=== PATIENT | male | born 1950 | race Hispanic/Latino ===

== ENCOUNTER 2017-04-21 00:45 | Observation (INO) | payer MEDICARE, BC ==
[2017-04-21 00:46] VITALS: BMI 47.5
--- NOTE | 2017-04-21 01:05 | ED PDOC ---
Arrival/HPI - General Chief Complaint: Chest Pain Time Seen by Provider: 04/21/17 00:49 Historian: Patient - History of Present Illness Narrative History of Present Illness (Text): 04/21/17 01:05 Roberto Blanc is a 66 year old male who presents to the emergency department complaining of vague mid-sternal chest pain since yesterday evening. Patient states it is difficult to describe the quality of pain. This that chest pain could be due to possible allergic reaction to something he ate. Along with the chest pain, patient states he developed some itchiness to the arms which resolved after using Benadryl spray. Patient also notes of some shortness of breath during onset of symptoms, but informs that symptoms are gone now.Also states that earlier today when eating cottage cheese felt transit time in his esophagus was delayed. Denies any fever, chills, headache, dizziness, back pain , nausea, vomiting, diarrhea, lower extremity pain, urinary symptoms or any other complaints at this time. Time/Duration: 4-6 hours Symptom Onset: Gradual Symptom Course: Improving Severity Level: Mild Activities at Onset: Light Past Medical History - Provider Review Nursing Documentation Reviewed: Yes - Cardiac Hx Hypertension: Yes Hx Pacemaker: No - Neurological Hx Paralysis: No - Hematological/Oncological Hx Blood Transfusions: No - Musculoskeletal/Rheumatological Hx Musculoskeletal Disorders: No - Psychiatric Hx Emotional Abuse: No Hx Physical Abuse: No Hx Substance Use: No - Anesthesia Hx Anesthesia Reactions: No Hx Malignant Hyperthermia: No - Suicidal Assessment Feels Threatened In Home Enviroment: No Family/Social History - Physician Review Nursing Documentation Reviewed: Yes Family/Social History: No Known Family HX Smoking Status: Never Smoked Hx Alcohol Use: No Hx Substance Use: No Allergies/Home Meds Allergies/Adverse Reactions: Allergies No Known Allergies Allergy (Verified 11/08/15 07:44) Home Medications: Home Meds Medication Instructions Recorded Confirmed Atorvastatin [Lipitor] 20 mg PO DAILY 04/21/17 04/21/17 Losartan/Hydrochlorothiazide 1 tab PO DAILY 04/21/17 04/21/17 [Losartan Potassium-Hydrochlorothiazide 12.5 M] Metoprolol Tartrate [Lopressor] 100 mg PO DAILY 04/21/17 04/21/17 [id number] Ethyl Esters 1 GM 1 gm PO QID 04/21/17 04/21/17 [Lovaza] Review of Systems - Physician Review All systems were reviewed & negative as marked: Yes - Review of Systems Constitutional: Normal. absent: Fatigue, Fevers Respiratory: SOB. absent: Cough, Sputum Cardiovascular: Chest Pain. absent: Palpitations Gastrointestinal: Normal. absent: Abdominal Pain, Diarrhea, Nausea, Vomiting Genitourinary Male: Normal. absent: Dysuria Skin: Other (itchiness to arms ) Neurological: Normal. absent: Headache, Dizziness Psychiatric: Normal Physical Exam Vital Signs Reviewed: Yes Vital Signs Temp Pulse Resp BP Pulse Ox 04/21/17 03:52 97.8 F 51 L 18 131/82 04/21/17 03:42 62 16 125/72 98 04/21/17 00:53 98.3 F 59 L 16 132/67 97 Temperature: Afebrile Blood Pressure: Normal Pulse: Regular Respiratory Rate: Normal Appearance: Positive for: Well-Appearing, Non-Toxic, Comfortable Pain Distress: None Mental Status: Positive for: Alert and Oriented X 3 - Systems Exam Head: Present: Atraumatic, Normocephalic Pupils: Present: PERRL Conjunctiva: Present: Normal Mouth: Present: Moist Mucous Membranes Respiratory/Chest: Present: Clear to Auscultation, Good Air Exchange. No: Respiratory Distress, Accessory Muscle Use Cardiovascular: Present: Regular Rate and Rhythm, Normal S1, S2. No: Murmurs Abdomen: Present: Normal Bowel Sounds. No: Tenderness, Distention, Peritoneal Signs Upper Extremity: Present: Normal Inspection. No: Cyanosis, Edema Lower Extremity: Present: Normal Inspection. No: Edema Neurological: Present: GCS=15, CN II-XII Intact, Speech Normal, Motor Func Grossly Intact, Normal Sensory Function Skin: Present: Warm, Dry, Normal Color. No: Rashes Psychiatric: Present: Alert, Oriented x 3, Normal Insight, Normal Concentration Medical Decision Making ED Course and Treatment: 04/21/17 01:15 Impression: A 66 year old male who presents to the emergency department complaining of vague chest discomfort and mild shortness of breath since yesterday evening. Plan: -- EKG -- Labs, cardiac notes -- Chest X-ray -- Reassess and disposition Progress Notes: 04/21/17 02:48 EKG interpreted by me: Sinus bradycardia @ 59 bpm. LVH. septal infarct. Case discussed with Dr. Nickerson who is aware and agrees with the plan to observe patient at remote telemetry for chest pain. Accepts patient under service with and on consult - Lab Interpretations Lab Results: 04/21/17 01:09 04/21/17 01:09 Lab Results 04/21/17 01:09: WBC 5.0 D, RBC 4.95, Hgb 14.9, Hct 42.9, MCV 86.7, MCH 30.1, MCHC 34.7, RDW 14.9 H, Plt Count 61 L, MPV 10.0 04/21/17 01:09: Sodium 137, Potassium 3.8, Chloride 103, Carbon Dioxide 25, Anion Gap 13, BUN 17, Creatinine 1.4, Est GFR ( Amer) > 60, Est GFR (Non- Af Amer) 51, Random Glucose 117 H, Calcium 10.2, Total Bilirubin 2.8 H, AST 53, ALT 47, Alkaline Phosphatase 205 H, Lactate Dehydrogenase 383, Total Creatine Kinase 77, Troponin I < 0.01, Total Protein 7.9, Albumin 4.1, Globulin 3.9, Albumin/Globulin Ratio 1.1 04/21/17 01:09: PT 11.5, INR 1.06, APTT 30.8 - RAD Interpretation Radiology Orders: 04/21/17 01:02 CHEST PORTABLE [RAD] Stat - Medication Orders Current Medication Orders: Sodium Chloride (Sodium Chloride 0.9%) 1,000 mls @ 100 mls/hr IV .Q10H STA Stop: 04/21/17 12:27 Last Admin: 04/21/17 03:01 Dose: 100 mls/hr - Scribe Statement The provider has reviewed the documentation as recorded by the Unique Medeiros Provider Attestation: Provider Scribe Attestation: All medical record entries made by the Alfredoibkatya were at my direction and personally dictated by me. I have reviewed the chart and agree that the record accurately reflects my personal performance of the history, physical exam, medical decision making, and the department course for this patient. I have also personally directed, reviewed, and agree with the discharge instructions and disposition. Disposition/Present on Arrival - Present on Arrival Any Indicators Present on Arrival: No History of DVT/PE: No History of Uncontrolled Diabetes: No Urinary Catheter: No History of Decub. Ulcer: No History Surgical Site Infection Following: None - Disposition Have Diagnosis and Disposition been Completed?: Yes Diagnosis: Chest pain Disposition: HOSPITALIZED Disposition Time: 02:25 Patient Plan: Observation Patient Problems: Current Active Problems Problem Status Onset Chest pain Acute Condition: STABLE Referrals: Stu Nickerson MD [Staff Provider] -
[2017-04-21 01:37] LABS: HEMATOCRIT 42.9 % (42.0-52.0); MEAN CELL VOLUME 86.7 fL (80.0-105.0); MEAN CORPUSCULAR HEMOGLOBIN 30.1 pg (25.0-35.0); MEAN CORPUSCULAR HGB CONC 34.7 g/dl (31.0-37.0); RED CELL DISTRIBUTION WIDTH 14.9 % (11.5-14.5)
[2017-04-21 01:43] LABS: INR 1.06 (0.93-1.08); PARTIAL THROMBOPLASTIN TIME 30.8 Seconds (23.7-30.8)
[2017-04-21 02:20] LABS: ALB/GLOB RATIO 1.1 (1.1-1.8); ALKALINE PHOSPHATASE 205 U/L (38-133); ALT/SGPT 47 U/L (7-56); AST/SGOT 53 U/L (15-59); BILIRUBIN,TOTAL 2.8 mg/dL (0.2-1.3); BLOOD UREA NITROGEN 17 mg/dL (7-21); CALCIUM 10.2 mg/dL (8.4-10.5); CARBON DIOXIDE 25 mmol/L (21-33); CHLORIDE 103 mmol/L (98-107); GFR AFRICAN-AMERICAN > 60; GLUCOSE,RANDOM 117 mg/dL (70-110); POTASSIUM 3.8 mmol/L (3.6-5.0); SODIUM 137 mmol/L (132-148); TOTAL PROTEIN 7.9 g/dL (5.8-8.3)
[2017-04-21] MEDS ORDERED: Sodium Chloride 0.9% 1,000 ML IV STA (02:28)
[2017-04-21 02:54] LABS: TROPONIN I < 0.01 ng/mL
--- NOTE | 2017-04-21 08:41 | RAD ---
HISTORY: chest pain COMPARISON: 09/14/2015 FINDINGS: LUNGS: No active pulmonary disease. PLEURA: No significant pleural effusion identified, no pneumothorax apparent. CARDIOVASCULAR: Normal. OSSEOUS STRUCTURES: No significant abnormalities. VISUALIZED UPPER ABDOMEN: Normal. OTHER FINDINGS: None. IMPRESSION: No active disease.
[2017-04-21] MEDS: Metoprolol Succinate 100 mg XL Tab PO SCH (10:00)
--- NOTE | 2017-04-21 14:20 | CON ---
DATE: 04/21/2017 INDICATIONS: Shortness of breath, abnormal EKG. HISTORY OF PRESENT ILLNESS: This is a 66-year-old man admitted after a couple days of unusual symptoms including shortness of breath, upper airway discomfort , difficulty swallowing and hives. These symptoms started on Thursday when he had a 2-3 hour episode of vague shortness of breath and upper airway discomfort. There was no definite chest pain. He noted fleeting hives on his arms and chest. On Thursday, he again noted difficulty with his upper airway. There was some shortness of breath, he had difficulty swallowing and drank water to wash down some cottage cheese. The symptoms persisted on Thursday and he came to the Emergency Room and was admitted. There is no definite exertional chest pain. He does have an abnormal EKG. In preparation for bladder procedure for removal of stones, he underwent a nuclear stress test about 3 weeks ago. This was apparently unremarkable. The nuclear scans were negative. The ejection fraction was 68%. He does not describe typical exertional dyspnea or chest pain. There is no orthopnea, PND, syncope, presyncope, lightheadedness, dizziness, vertigo, palpitations, edema or claudication. There is no fever, chills, cough, sputum production or hemoptysis. No abdominal pain, nausea, vomiting, diarrhea, constipation, melena. PAST MEDICAL HISTORY: Notable for hypertension, chronic renal stones. Apparently a stone has passed into his bladder and a urologic procedure is planned by Dr. Hennessy. There is a history of hyperlipidemia. There is no history of rheumatic fever, myocardial infarction, angina, congestive heart failure, stroke, TIA, diabetes or gout. MEDICATIONS: At the time of admission include Lipitor, metoprolol, lovastatin, HCT, and Lovaza. ALLERGIES: There are no known medication allergies. SOCIAL HISTORY: He does not smoke, does not drink alcohol significantly. He lives at home with his family. FAMILY HISTORY: Noncontributory. REVIEW OF SYSTEMS: A 10-point review of systems is otherwise unremarkable except as noted above. PHYSICAL EXAMINATION: GENERAL: He is a well-developed male lying in bed on 3R, in no acute distress. VITAL SIGNS: Unremarkable. He is in sinus rhythm to sinus bradycardia, heart rate 51-59 beats per minute. He is afebrile. Blood pressure 131/82, respirations 18, O2 sat 97-98% on room air. HEENT: Reveals no neck vein distention, thyromegaly, or carotid bruits. Mucous membranes are moist. Conjunctivae are pink. NECK: Supple. LUNG STEEN: Clear. HEART: Revealed normal first and second heart sounds. There is a soft systolic murmur along the left sternal border. The PMI is not palpable. ABDOMEN: Soft, bowel sounds are present. No mass, organomegaly, tenderness, rebound, or guarding. No CVA tenderness. No palpable abdominal aortic aneurysm. EXTREMITIES: Revealed no cyanosis, clubbing, or edema. NEUROLOGIC: Awake, alert and oriented. PSYCHIATRIC: Normal as to mood and affect. SKIN: Warm and dry. No rash or cellulitis. No hives seen at this time. LABORATORY AND IMAGING: A chest x-ray is a portable study. It is not read yet. I see no evidence of congestive heart failure, infiltrate or effusion. EKG showed regular sinus rhythm, ST-T wave changes consistent with ischemia, possible anterior septal myocardial infarction. It was unchanged from an earlier EKG done on 04/17 for PAT purposes. CBC is unremarkable except that the platelet count is low at 61,000. PT, INR, PTT normal. Electrolytes, BUN, creatinine, blood sugar unremarkable. Liver function tests are notable for bilirubin of 2.8, normal AST, normal ALT, mildly elevated alk phos at 205. CK is 77. Troponin less than 0.01. IMPRESSION: The patient is a 66-year-old male admitted with vague symptoms suggestive of an allergic reaction with an abnormal electrocardiogram with a negative recent IVD nuclear stress test. He also has thrombocytopenia and hyperbilirubinemia. At this time, I will review his records and discuss his case with Dr. Jarrett who has seen him in the office. I will order an echocardiogram given his abnormal EKG and presenting symptoms. Consideration should be given to cardiac catheterization to define his coronary anatomy. In the meantime, I would hold the elective urologic procedure until we can clarify his cardiac status and his current symptomatology. Hematology and GI evaluations may be appropriate as well. Roberto Vazquez MD cc: [id number] TT: 04/21/2017 14:19:35 Confirmation # [id number] Dictation # [id number] manuel ROSE
--- NOTE | 2017-04-21 17:27 | CARD ---
APPROVED REPORT EKG Measurement Heart [id number] CT 192P44 [id number] <Conclusion> Sinus bradycardia Voltage criteria for left ventricular hypertrophy Cannot rule out Septal infarct, age undetermined ST & T wave abnormality, consider inferior ischemia Abnormal ECG
--- NOTE | 2017-04-21 17:35 | CARD ---
APPROVED REPORT EKG Measurement Heart [id number] 190P50 [id number] <Conclusion> Sinus bradycardia Possible Left atrial enlargement Left ventricular hypertrophy Cannot rule out Septal infarct, age undetermined Abnormal ECG
[2017-04-21 17:37] VITALS: RESP 20
--- NOTE | 2017-04-21 18:00 | CON ---
DATE: 04/21/2017 See and examined at the bedside earlier today. The chart was reviewed. REQUEST FOR CONSULT: Dysphagia. HISTORY OF PRESENT ILLNESS: This is a 66-year-old obese male here with his at the bedside, he h as a past medical history of hypertension, and bladder, chronic renal stones. The patient has schedu led procedure to have bladder stone removal that migrated, has a renal stone that migrated into the b ladder, for removal in May. He came to the hospital with complaints of shortness of breath, difficu lty swallowing, generalized hives. He reported that on Thursday he ate a meatball with sauce at [facility]. After a few hours of eating this meatball, he started to get some shortness of breath, noted that he had a left neck swollen gland and felt that he had difficulty swallowing. The next day , he still continued to have this chest heaviness and nausea and difficulty belching. He did not com plain of any diarrhea. He also noticed that he ended up having hives on his body. He denies any new medications or detergent. He used Benadryl spray which helped to clear up the hives. He noticed th at when he ate cottage cheese he felt that it was getting stuck and had to drink fluids. He then com plained of feeling of soreness in his throat and felt this discomfort on his chest and the esophagus. He denied ever having any previous episodes of this complaints prior to the events on Thursday. He stated that he was in his usual state of health prior to this. His said that he had never had this meatball before. Never had an endoscopy or colonoscopy. He denies any symptoms of acid reflux. No complaints of any weight loss or change in bowel habits. He did have his last bowel movement wa s yesterday and it was soft. Reports no melena or bright red blood. He had a chest x-ray done on ad and that was negative for any infiltrates, pneumothorax or pleural effusion. The patient now denies, no complaints of any fever or chills or any hematemesis. PAST MEDICAL HISTORY: As stated above, hypertension, obesity, chronic renal stones, hyperlipidemia. PAST SURGICAL HISTORY: No cardiac or abdominal procedures. He had bilateral knee surgery. He had a torn meniscus. He is scheduled for stone extraction with Dr. Hennessy in May. ALLERGIES: No known drug allergies. MEDICATIONS: Reviewed as per MAR. FAMILY HISTORY: His sister had melanoma. MEDICATIONS: Reviewed as per DEC. REVIEW OF SYSTEMS: Systems were reviewed with positive findings, see HPI. VITAL SIGNS: Temperature is 98.3, blood pressure 133/70, his pulse is 50, respirations 18, 95 on cecilia m air. LABORATORY DATA: WBC is 5.0, H and H is 14.9 and 42.9, platelet is 61. PT is 11.5, INR is 1.06, PTT is 30.8. Sodium 137, K is 3.8, BUN 17, creatinine is 1.4. Total bilirubin is 2.8, AST 53, ALT 47, alkaline phosphatase is 205, LDH is 383. His troponin is negative x 2. And like I said, chest x-ray no acute findings. PHYSICAL EXAMINATION: HEENT: Sclerae anicteric. NECK: Supple. CARDIAC: S1, S2. LUNGS: Decreased breath sounds but good air entry. No rales or wheeze. ABDOMEN: With bowel sounds softly, obese. No tenderness appreciated on deep palpation. No rebound, guarding, or organomegaly. EXTREMITIES: Positive pedal pulses, no edema. NEUROLOGIC: Awake, alert, and oriented. ASSESSMENT: This is a 66-year-old male with a history of hypertension who came with complaints of sh ortness of breath and allergic reaction, possibly to food intake. He now complains of dysphagia, rul e out any esophagitis, strictures, malignancy, eosinophilic esophagitis. The patient is noted to hav e elevated alkaline phosphatase. It could be secondary to bladder stone. The patient states he has had that there for 2 years and migrated down to the bladder. He is scheduled for a urological proced ure. Looking back in his previous blood work, he is noted to have elevated alkaline phosphatase. He is noted to have thrombocytopenia and also hyperbilirubinemia, which looks to be chronic as well com paring his previous labs back to 2015. GI mariano, did not see any . We can consider doing an abd ominal ultrasound to rule out any gallbladder pathology. The patient would benefit from endoscopic e valuation. Would consider this after cardiology workup. He is pending an echo for abnormal EKG and the shortness of breath. We will put him on a clear liquid diet GI prophylaxis and request for an abdominal ultrasound. Thank you for this consult and for allowing us to participate in your patient's care. We will make f polather recommendation upon the patient's clinical course. The patient was seen and case discussed wi Dr. Traore. Nissa LOWERY cc: [id number] TT: 04/21/2017 17:59:42 Confirmation # [id number] Dictation # [id number] mn
--- NOTE | 2017-04-21 23:34 | CON ---
DATE: 04/21/2017 ADDENDUM This is an addendum to the GI progress report dictated by Nissa Dash APN. This 66-year-old patient admitted with atypical chest discomfort, the shortness of breath with some d ifficulty in swallowing and hives after he ate some meatball with sauce. He felt it is probably heidy rgic reaction to the food, what he had, but the symptoms persisted and he also had some chest heavine ss. The symptoms got pronounced and persisted yesterday and came to the ER. The patient had the sym ptoms started on Thursday. Never had similar episodes before. He does not remember having had an endo scopy and a colonoscopy in the past. The patient has been followed by Dr. Shipman, director digital sales, for thrombocytopenia. The patient is not aware of any chronic liver disease. History of kidney sto lo in the past; he passed some many years ago. He had another small stone which recently he states was moved to the bladder and he is due to have that stone removed from the bladder after lithot ripsy. PHYSICAL EXAMINATION: GENERAL: Presently, on examination at the time of examination was at bedside. The patient was comfortable, does not complain of any abdominal pain. ABDOMEN: Soft, morbidly obese patient, he weighs about 345 pounds. There is no tenderness. LABORATORY DATA: The ultrasound scan done was reviewed. It showed gallstones. CBD normal at 0.54 m m. Review of the labs showed LFTs elevated. Total bilirubin is 2.8, alkaline phosphatase 205. His platelet count is only 61,000. IMPRESSION: 1. This 66-year-old morbidly obese patient admitted with atypical symptoms of some chest pressure, v omiting and hives and allergic type reaction which was slowly improving. The patient also complains of some difficulty in food going down. In view of the persistence of the symptoms, he presented to [facility] ER. The etiology for the atypical chest pain is unclear. The differential diagnoses include ira roesophageal reflux disease, peptic ulcer disease. Cardiac etiology also to be considered in his age with high risk factors. 2. Elevated LFTs. The differential diagnosis should include chronic liver disease. The patient trotter s have elevated total bilirubin and alkaline phosphatase, but the CBD is normal. We need to consider . Cholelithiasis could be a factor, but however, the CBD is normal. In the setting of the thrombocy topenia, elevated LFTs, we need to consider chronic liver disease as a major factor to rule out any u nderlying. Rule out cirrhosis, fatty liver disease. 3. Morbid obesity. He weighs 345 pounds. RECOMMENDATIONS: Would recommend: 1. Hepatitis profile. 2. Direct bilirubin. 3. CT of the abdomen and pelvis with p.o. contrast only in view of this patient's elevated at 1.4. 4. We will also consider MRCP to rule out stones; however, since the patient weighs over 345 pounds, I would check with the MR department to see whether he will be able to accommodate here in [place]. We will get a CT scan. We will continue to closely follow up his care and suggest further management based on the clinical c ourse. Mayra Traore MD cc: [id number] TT: 04/21/2017 23:34:31 Confirmation # [id number] Dictation # [id number] mn
[2017-04-22] MEDS ORDERED: Barium Sulfate Susp 2.1% w/v, 2.0% w/w 450 mL Bottle PO ONE (06:41)
[2017-04-22 07:31] LABS: ADD MANUAL DIFF? NO
[2017-04-22 07:33] LABS: EOS # 0.1 (0.0-0.7); EOS % 1.7 % (1.5-5.0); GRAN % 69.3 % (50.0-68.0); HEMATOCRIT 41.8 % (42.0-52.0); LYMPH # 0.7 (1.2-3.4); LYMPH % 19.9 % (22.0-35.0); MEAN CELL VOLUME 87.1 fL (80.0-105.0); MEAN CORPUSCULAR HEMOGLOBIN 29.8 pg (25.0-35.0); MEAN CORPUSCULAR HGB CONC 34.2 g/dl (31.0-37.0); MEAN PLATELET VOLUME 11.1 fl (7.0-11.0); MONO # 0.3 (0.1-0.6); MONO % 9.1 % (1.0-6.0); RED CELL DISTRIBUTION WIDTH 14.9 % (11.5-14.5); WHITE BLOOD COUNT 3.6 10^3/ul (4.5-11.0)
[2017-04-22 07:56] LABS: ALB/GLOB RATIO 1.1 (1.1-1.8); ALKALINE PHOSPHATASE 173 U/L (38-133); ALT/SGPT 41 U/L (7-56); AST/SGOT 43 U/L (15-59); BILIRUBIN,DIRECT 0.7 mg/dL (0.0-0.4); BILIRUBIN,TOTAL 3.4 mg/dL (0.2-1.3); BLOOD UREA NITROGEN 13 mg/dL (7-21); CALCIUM 10.2 mg/dL (8.4-10.5); CARBON DIOXIDE 25 mmol/L (21-33); CHLORIDE 105 mmol/L (98-107); GFR AFRICAN-AMERICAN > 60; GLUCOSE,RANDOM 102 mg/dL (70-110); POTASSIUM 3.6 mmol/L (3.6-5.0); SODIUM 139 mmol/L (132-148); TOTAL PROTEIN 7.4 g/dL (5.8-8.3)
[2017-04-22 08:58] LABS: PLATELET COUNT 45 10^3/uL (120.0-450.0)
--- NOTE | 2017-04-22 08:58 | US ---
HISTORY: Elevated LFT COMPARISON: CT abdomen and pelvis from 05/15/2015 TECHNIQUE: Grayscale imaging was performed. FINDINGS: LIVER: Measures 20.2 cm. There is diffuse increased echogenicity of the liver parenchyma. No mass. No intrahepatic bile duct dilatation. GALLBLADDER: There is a 7 mm gallstone. No wall thickening or pericholecystic fluid COMMON BILE DUCT: Measures 5.2 mm. No stones. No dilatation. PANCREAS: Unremarkable as visualized. No mass. No ductal dilatation. RIGHT KIDNEY: Measures 13.4cm. Normal echogenicity. No calculus, mass, or hydronephrosis. There is a 6.4 cm cyst in the upper pole and 3.6 cm cyst in the upper pole. There is a 3.3 x 3.1 x 3.6 cm hypoechoic lesion in the interpolar region. LEFT KIDNEY: Measures 16.1cm. Normal echogenicity. No calculus, mass, or hydronephrosis. SPLEEN: The spleen is enlarged and measures 15 cm. Normal echotexture. AORTA: No aneurysmal dilatation. IVC: Unremarkable. OTHER FINDINGS: None. IMPRESSION: 1. Hepatosplenomegaly and hepatic steatosis. 2. Cholelithiasis. 3. Two simple cysts in the right kidney, the larger in the upper pole measures 6.4 cm. 4. 3.6 cm lesion in the interpolar region of the right kidney has a slightly complicated appearance and could represent a hemorrhagic cyst however solid mass cannot be entirely excluded. CT scan of the abdomen without and with intravenous contrast with renal protocol would be helpful for further characterization.
[2017-04-22] MEDS: Metoprolol Succinate 100 mg XL Tab PO SCH (09:16)
--- NOTE | 2017-04-22 09:16 | HP ---
CHIEF COMPLAINT: Chest and throat symptoms, pain, pressure, burping. HISTORY OF PRESENT ILLNESS: This is a 66-year-old man with hypertension, morbid obesity, got an echo recently in the office when asked to evaluate for preop clearance for bladder stone removal. 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 On Thursday, he claimed he ate a bad meatb all that gave him some chest and abdominal symptoms. He had the need to burp, and then after that, f elt as if food was "stuck on the way down". He ate cottage cheese, as that did not seem to feel stuc k in his throat. The next day, he seemed to do well, had no further symptoms. However, it was the d ay after that again he felt a heaviness in the upper chest, usual throat and upper swallowing-type sy mptoms. He broke out in hives, which cleared shortly after taking Benadryl, but then later on, the c hest and throat symptoms continued. He decided to come to the Emergency Room. PAST MEDICAL HISTORY: Significant for hypertension and kidney/renal stone. There is no history of c oronary artery disease, CHF, stroke, TIA, diabetes, gout, emphysema. He does have a history of eleva mack cholesterol and morbid obesity. MEDICATIONS: Lovastatin, HCTZ, Lovaza, metoprolol, and Lipitor. ALLERGIES: He has no known allergies to medications. SOCIAL HISTORY: He does not smoke or drink alcohol. He is , lives at home. FAMILY HISTORY: Noncontributory. REVIEW OF SYSTEMS: Otherwise, unremarkable. PHYSICAL EXAMINATION: GENERAL: The patient was seen this Thursday at noon-time with his at the bedside in room 369, be d 2. He is awake, alert, clear, and appropriate. Mental status is at baseline normal. HEAD: Unremarkable. Conjunctivae are pink. Mucous membranes are moist. NECK: Thick with a large neck circumference. No palpable nodes or masses. LUNGS: Show good aeration, right and left. HEART: Regular, not tachycardic. ABDOMEN: Soft, nontender, obese. EXTREMITIES: Show trace edema of morbid obesity. IMPRESSION: 1. Upper chest and throat symptoms, which sound more gastrointestinal etiology, especially in view o f the recent normal thallium stress. 2. Normal recent thallium stress test. 3. Morbid obesity. 4. Hypertension. 5. Hyperlipidemia. 6. Recent episode of acute hives. PLAN: Hives seem to have been subsided, so I will not need to follow up with steroids or antihistami lo for now, but would continue proton pump inhibitor, and consultations by GI and endoscopy have kade reyes been requested. An n.p.o. sign is on the wall over the bed, and the patient is hopefully to be going for endoscopy later today to rule out esophageal obstruction or stenosis, or just of reflux es ophagitis. We will follow closely. Stu Nickerson MD cc: [id number] TT: 04/22/2017 09:15:32 micheline
[2017-04-22 09:19] VITALS: BP 123/68
[2017-04-22 10:27] VITALS: TEMP 98.5; O2SAT 96
--- NOTE | 2017-04-22 10:45 | PN ---
DATE: 04/22/2017 SUBJECTIVE: The patient is seen sitting in a chair on 3R. He is comfortable at the present time. Tarun aldana has had no further throat discomfort. He was apparently found to have a gallstone and is also sche duled for an abdominal CT scan. His cardiac enzymes have been negative. CURRENT MEDICATIONS: Include Lipitor, Protonix and Toprol-XL 100 mg daily. OBJECTIVE: GENERAL: He is an obese, middle-aged man. VITAL SIGNS: His blood pressure is 122/68 with a pulse of 60 and sinus, respirations are 14, he is a febrile. HEENT: Normocephalic, atraumatic. NECK: No JVD. CHEST: A few scattered rhonchi. HEART: PMI displaced laterally. A systolic murmur at the left sternal border. ABDOMEN: Soft, obese, nontender. Normoactive bowel sounds. EXTREMITIES: No edema. DIAGNOSTIC DATA: White count 3.6, hemoglobin and hematocrit are 14.3 and 41.8 with a platelet count of 45,000. Potassium 3.6, BUN and creatinine 13 and 1.3. Cardiac enzymes are negative x 2. Electro cardiogram reveals sinus bradycardia with inferolateral T-wave inversions, unchanged from prior jason ngs. IMPRESSION: 1. Throat tightness associated with reaction dyspnea. Sounds more consistent with mild anaphylactic reaction, now improved. 2. Recent negative stress test. 3. Chronically abnormal electrocardiogram. 4. Morbid obesity. 5. Hypertension. 6. Thrombocytopenia, etiology uncertain. RECOMMENDATIONS: From a cardiac standpoint, continued antihypertensive therapy is advised. No [facility] cardiac workup will be planned at this time. If he has any exertional symptoms, consideration can be given to cardiac catheterization given his recent negative stress test and uncertain symptoms. F rom a cardiac standpoint, he appears stable for discharge home once cleared by medicine and GI. Work up for his thrombocytopenia should be performed if not recently done. Shadi Jarrett MD cc: [id number] TT: 04/22/2017 10:45:24 Confirmation # [id number] Dictation # [id number] en
--- NOTE | 2017-04-22 10:54 | CT ---
PROCEDURE: CT Abdomen and Pelvis without intravenous contrast HISTORY: atypical chest pain,abdominal pain ,elevated LFT COMPARISON: 05/15/2015. TECHNIQUE: Technique. Contrast Dose: Radiation dose: Total exam DLP = mGy-cm. This CT exam was performed using one or more of the following dose reduction techniques: Automated exposure control, adjustment of the mA and/or kV according to patient size, and/or use of iterative reconstruction technique. FINDINGS: The lung bases are clear. There hepatosplenomegaly without gross liver mass. Gallstones are present. There is no pancreatic lesion. The adrenal glands are unremarkable. There is a right renal cyst measuring roughly 5.6 centimeters. There is additional 3.5 centimeter right lower pole renal lesion which is more hyperdense and possibly new since prior examination. There is a dilated right renal pelvis with a punctate calculus in the lower pole right kidney. There nonobstructive calculus in lower pole of the left kidney. Mild bilateral peripelvic infiltration is observed. There is no significant lymphadenopathy. There is colonic diverticulosis. A roughly 15 millimeter bladder calculus is noted. No suspicious skeletal lesions are observed. IMPRESSION: 15 millimeter bladder calculus. Dilated right renal proximal ureter and pelvis possibly due to old hydronephrosis. New hyperdense lesion in the lower pole the right kidney measuring 3.5 centimeters for which correlation with MRI or contrast-enhanced exam is recommended. Hepatosplenomegaly. Cholelithiasis.
[2017-04-22 12:50] VITALS: PULSE 55
--- NOTE | 2017-04-22 16:03 | PN ---
DATE: 04/22/2017 Seen and examined at the bedside earlier today. The patient was waiting to go for a CAT scan. He de nies any further symptoms of dysphagia or chest pressure or abdominal discomfort. No reports of any shortness of breath, chest pain. He did have a bowel movement. No reports of any diarrhea or bleedi ng. VITAL SIGNS: Temperature is 98.5, blood pressure 123/68, pulse 61, respirations 20, 96 on room air. LABORATORY DATA: Today, WBC is 3.6. His H and H is 14.3 and 41.8. Platelet count is 45 to manual p latelet is 50. Chemistry: Sodium 139, K is 3.6. Total bilirubin is 3.4, direct bili is 0.7. AST 4 3, ALT 41, alkaline phosphatase of 173. Hepatitis panel was done and that was negative. He went for abdominal ultrasound and that showed hepatosplenomegaly and hepatic steatosis, cholelithiasis, 2 sim ple cysts in the right kidney, the larger in the upper pole measures 6.4, and there is a 3.6 cm lesio n in the interpolar region of the right kidney, has a slightly complicated appearance and could repre sent hemorrhagic cyst; however, a solid mass cannot be entirely excluded. CT scan of abdomen without and with IV contrast with renal protocol would be helpful. CT scan of abdomen and pelvis with oral contrast only done shows no suspicious lesions are observed. He has a dilated right renal prox imal ureter and pelvis, possibly due to old hydronephrosis. There is a new hyperdense lesion in the lower pole of the right kidney, hepatosplenomegaly and cholelithiasis. There is no significant lymph adenopathy and there is colonic diverticulosis. PHYSICAL EXAMINATION: HEENT: Sclerae are anicteric. NECK: Supple. CARDIAC: S1, S2. LUNGS: Decreased breath sounds but good aeration. No rales or wheeze. ABDOMEN: With bowel sounds, softly obese, nontender on palpation. No rebound or guarding. ASSESSMENT: This is a 66-year-old male with atypical symptoms of chest pressure, vomiting and hives and allergic type reaction. He did complain of difficulty of food going down. Consider gastroesopha geal reflux disease and peptic ulcer disease or cardiac etiology. He was also noted to have elevated liver enzymes, mainly total bilirubin and alkaline phosphatase. He did have an ultrasound and CAT s can, which does show cholelithiasis, but common bile duct was normal. He is also noted to have chron ic history of thrombocytopenia. Consider chronic liver disease. Rule out any cirrhosis. Ultrasound did report some fatty liver. He is also morbidly obese. Other comorbidities are hypertension and r enal stones, he is due to have a procedure to remove this with Dr. Hennessy in May, and diabetes mellitu s. PLAN: Continue to monitor liver enzymes. The patient, when more optimal, may benefit from endoscopi c evaluation. Currently on clear liquid, consider to advance as tolerated. Continue PPI. The patie nt will need followup for his thrombocytopenia with hematology. We will continue to follow closely. This was discussed with Dr. Traore, who was covering rounds. Nissa LOWERY cc: [id number] TT: 04/22/2017 16:02:19 Confirmation # [id number] Dictation # [id number] sofia
--- NOTE | 2017-04-23 10:01 | CARD ---
APPROVED REPORT EXAM: Two-dimensional and M-mode echocardiogram with Doppler and color Doppler. Other Information Quality : GoodRhythm : INDICATION Abnormal EKG/Arrhythmia Dyspnea 2D DIMENSIONS Left Atrium (2D)4.6 (1.6-4.0cm)IVSd1.2 (0.7-1.1cm) LVDd5.3 (3.9-5.9cm)PWd1.2 (0.7-1.1cm) LVDs3.2 (2.5-4.0cm)FS (%) 39.4 % LVEF (%)69.0 (>50%) M-Mode DIMENSIONS Aortic Root3.20 (2.2-3.7cm)Aortic Cusp Exc.2.30 (1.5-2.0cm) Aortic Valve AoV Peak Edftumit097.0cm/s Mitral Valve E/A ratio0.0 TDI E/Lateral E'0.0E/Medial E'0.0 Tricuspid Valve TR Peak [id number] [id number] Peak Gr.32mmHg [id number] LEFT VENTRICLE The left ventricle is normal size. There is mild concentric left ventricular hypertrophy. The left ventricular function is normal. The left ventricular ejection fraction is within the normal range. There is normal LV segmental wall motion. RIGHT VENTRICLE The right ventricle is normal size. ATRIA The left atrium is mildly dilated. The right atrium size is normal. The interatrial septum is intact with no evidence for an atrial septal defect. AORTIC VALVE The aortic valve is normal in structure. MITRAL VALVE The mitral valve is normal in structure. TRICUSPID VALVE The tricuspid valve is normal in structure. There is mild tricuspid regurgitation. GREAT VESSELS The aortic root is normal in size. PERICARDIAL EFFUSION There is no pericardial effusion. <Conclusion> The left ventricle is normal size. There is mild concentric left ventricular hypertrophy. The left ventricular function is normal. The tricuspid valve is normal in structure. There is mild tricuspid regurgitation.
== END 2017-04-22 15:47 | disposition home or self-care (01) ==
LOC: ED 00:45 → ERH 02:26 → 3RSO 03:35 → 3RNO 09:15
PROVIDERS: ADMIT Internal Medicine; ATTEND Internal Medicine
DX: R07.89 Other chest pain (principal); R00.1 Bradycardia, unspecified; D69.6 Thrombocytopenia, unspecified; E11.9 Type 2 diabetes mellitus without complications; E66.01 Morbid (severe) obesity due to excess calories; E78.00 Pure hypercholesterolemia, unspecified; E78.5 Hyperlipidemia, unspecified; I10 Essential (primary) hypertension; K76.0 Fatty (change of) liver, not elsewhere classified; K80.20 Calculus of gallbladder without cholecystitis without obstruction; N20.0 Calculus of kidney; N21.0 Calculus in bladder; R13.10 Dysphagia, unspecified; Z79.899 Other long term (current) drug therapy; Z80.8 Family history of malignant neoplasm of other organs or systems; R40.2412 Glasgow coma scale score 13-15, at arrival to emergency department; L50.9 Urticaria, unspecified; R94.31 Abnormal electrocardiogram [ECG] [EKG]; R16.2 Hepatomegaly with splenomegaly, not elsewhere classified; N28.1 Cyst of kidney, acquired
CPT/HCPCS: 36415; 71010; 74176; 76700; 80053; 80074; 82248; 82550; 83615; 84484; 85025; 85027; 85610; 85730; 92610; 93005; 93306; 99285; C9113; G0378; G8996; G8997; G8998; J7040

== ENCOUNTER 2017-06-02 07:15 | Day surgery (SDC) | payer MEDICARE, BC ==
[2017-06-02 08:00] LABS: HEMATOCRIT 41.1 % (42.0-52.0); MEAN CORPUSCULAR HEMOGLOBIN 29.9 pg (25.0-35.0); MEAN CORPUSCULAR HGB CONC 34.8 g/dl (31.0-37.0); MEAN PLATELET VOLUME 10.6 fl (7.0-11.0); PLATELET COUNT 46 10^3/uL (120.0-450.0); RED CELL DISTRIBUTION WIDTH 14.6 % (11.5-14.5)
[2017-06-02 08:14] LABS: ADD MANUAL DIFF? YES; WHITE BLOOD COUNT 2.6 10^3/ul (4.5-11.0)
[2017-06-02] MEDS ORDERED: Propofol 10 mg/ml Inj (20 ML) ONE (08:22)
[2017-06-02] MEDS ORDERED: Midazolam 2 MG/2 ML VIAL ONE (08:23)
[2017-06-02 08:48] LABS: ATYPICAL LYMPHOCYTE 3 % (0.0-0.0); BLOOD UREA NITROGEN 15 mg/dL (7-21); CALCIUM 10.6 mg/dL (8.4-10.5); CARBON DIOXIDE 24 mmol/L (21-33); CHLORIDE 106 mmol/L (95-110); EOSINOPHIL 1 % (0.0-3.0); GFR AFRICAN-AMERICAN > 60; GLUCOSE,RANDOM 108 mg/dL (70-110); NEUTROPHIL 62 % (50.0-70.0); POTASSIUM 3.8 mmol/L (3.6-5.0); SODIUM 142 mmol/L (132-148)
[2017-06-02 08:51] LABS: PLATELET ESTIMATE LOW (NORMAL)
[2017-06-02 08:56] VITALS: BMI 46.7
[2017-06-02] MEDS ORDERED: cefTRIAXone 1 gm 1 GM/100 ML BAG IVPB STA (08:56)
[2017-06-02] MEDS ORDERED: Lactated Ringer's 1,000 ML IV SCH (10:07)
[2017-06-02] MEDS ORDERED: HYDROmorphone 0.5 mg/0.5 ml ISec IVP PRN (10:07)
[2017-06-02 11:17] VITALS: RESP 18; TEMP 97.4
--- NOTE | 2017-06-02 11:58 | OP ---
PROCEDURE DATE: 06/02/2017 PREOPERATIVE DIAGNOSIS: Bladder calculus. POSTOPERATIVE DIAGNOSES: Bladder calculus, history of thrombocytopenia, urethral stricture, and meatal stenosis. PROCEDURES PERFORMED: Cystoscopy, vesicolithotripsy, dilatation of strictured filiform and follower, and dilatations of meatus with sounds. SURGEON: Cruz Hennessy MD TYPE OF ANESTHESIA: LMA. DESCRIPTION OF PROCEDURE: After adequate LMA anesthesia and 1 g of Rocephin was given IV, the patient was placed lithotomy position, prepped and draped in the usual manner. A 22-[place] cystourethroscope was introduced under direction vision. There appeared to be bulbus urethral stricture. I removed cystoscope and using filiforms and followers dilated him to 22-[place] atraumatically. The filiforms and followers were then removed. A 22-[place] cystourethroscope was then introduced through the urethra. 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 The bladder showed grade 1 trabeculation. A solitary calculus approximately 2 cm. Orifices normal in appearance and location with clear efflux. No tumors. A Holmium laser setting of 20 and 2 was then used to fragment the stone into small little pieces. Some of them could be irrigated out through the 22-[place]. Others were are not able to, as try to irrigate it became slight hematuria. Because of low platelets I then removed the 22-[place] cystoscope and putting in a 26-[place] continuous flow resectoscope with a bigger opening channel would allow the pieces to be more easily evacuated. I had to dilate the meatus with sounds to 28-[place] to introduce the resectoscope and when I did insert it irrigating again there was little more hematuria. Consequently, I decide these pieces were small and that they would pass and it was not necessary to evacuate them since it might cause more hematuria than it is currently there and these pieces would passed on their own regardless. I then removed the continuous flow resectoscope. I placed a 20-[place] 3-way [place] easily into the bladder with CBI. The irrigant was clear with no clots and really no significant bleeding at all. The patient tolerated the procedure well. Some fragments were evacuated and were sent for analysis. He was awakened and brought to recovery room in good condition. Cruz Hennessy MD [facility] # [id number]
[2017-06-02 13:18] VITALS: BP 134/74; PULSE 65; O2SAT 98
== END 2017-06-02 13:50 | disposition home or self-care (01) ==
LOC: SDS 07:15
PROVIDERS: ATTEND Urology
DX: N21.0 Calculus in bladder (principal); N35.9 Urethral stricture, unspecified; D69.6 Thrombocytopenia, unspecified; I10 Essential (primary) hypertension
CPT/HCPCS: 36415; 52317; 80048; 85025; 88300; J0696; J1170; J2250; J2405; J2704; J2765; J3010; J7120

== ENCOUNTER 2018-04-13 13:02 | Emergency (ER) | payer MEDICARE, BC ==
[2018-04-13 13:19] VITALS: BMI 47.4
[2018-04-13] MEDS ORDERED: cefTRIAXone 1 gm 1 GM/100 ML BAG IVPB STA (13:23)
--- NOTE | 2018-04-13 13:29 | ED PDOC ---
Arrival/HPI - General Chief Complaint: Male Genitourinary Time Seen by Provider: 04/13/18 13:22 Historian: Patient, Spouse - History of Present Illness Narrative History of Present Illness (Text): 04/13/18 13:25 pt p/w + sudden onset of hematuria x few hours; pt recently had kidney surgery ~ 03/19 at [facility] - Dr Baez); pt was doing well; pt states he had a re -evaluation with Dr Baez a week or 2 after the initial surgery when he developed hematuria (similar to today), continue observation by his urology was provided; pt was re-evaulated last week ~ 4-[address] Baez and a sánchez catheter was placed yesterday; per pt's , pt was still producing yellow urine/NON-bloody until today, and prior to Emergency department arrival, pt's forceful hematuria pushed the sánchez catheter out; pt states since then with severe suprapubic pain/pelvic cramps; pt states continued gross hematuria today ; pt states + nausea, no vomiting, no fever/chills/sweats, no cp/sob/ palpitations, no bowel changes, pt denied fall/trauma/sick contact, no travel; pt denied LOC; pt is here for further eval; pt's without other complaints. pt felt very fatigued/weak, mild dizziness PCP: Dr Nickerson urology: Dr Baez Time/Duration: Prior to Arrival Symptom Onset: Sudden Symptom Course: Worsening Severity Level: Severe Activities at Onset: Other Context: Home Past Medical History - Provider Review Nursing Documentation Reviewed: Yes - Travel History Have you recently traveled outside [place] w/in the past 3 mons?: No - Past History Past History: No Previous - Infectious Disease Hx of Infectious Diseases: None - Tetanus Immunization Tetanus Immunization: Up to Date - Cardiac Hx Pacemaker: No - Neurological Hx Paralysis: No - Hematological/Oncological Hx Blood Transfusions: No - Musculoskeletal/Rheumatological Hx Musculoskeletal Disorders: No - Psychiatric Hx Emotional Abuse: No Hx Physical Abuse: No Hx Substance Use: No - Surgical History Other/Comment: Bilateral Knee - Anesthesia Hx Anesthesia Reactions: No Hx Malignant Hyperthermia: No - Suicidal Assessment Feels Threatened In Home Enviroment: No Family/Social History - Physician Review Nursing Documentation Reviewed: Yes Family/Social History: No Known Family HX Smoking Status: Never Smoked Hx Alcohol Use: No Hx Substance Use: No Hx Substance Use Treatment: No Allergies/Home Meds Allergies/Adverse Reactions: Allergies No Known Allergies Allergy (Verified 04/13/18 13:19) Home Medications: Home Meds Medication Instructions Recorded Confirmed Atorvastatin [Lipitor] 20 mg PO DAILY 04/21/17 04/13/18 Losartan/Hydrochlorothiazide 1 tab PO DAILY 04/21/17 04/13/18 [Losartan-Hctz 50-12.5 mg Tab] Metoprolol Tartrate [Lopressor] 100 mg PO DAILY 04/21/17 04/13/18 [id number] Ethyl Esters 1 GM 1 gm PO QID 04/21/17 04/13/18 [Lovaza] Multivit-Min/FA/Lycopen/Lutein 1 tab PO DAILY 03/15/18 04/13/18 [Centrum Silver Tablet] Silodosin [Rapaflo] 1 tab PO DAILY 04/13/18 04/13/18 Review of Systems - Review of Systems Constitutional: Normal Eyes: Normal ENT: Normal Respiratory: Normal Cardiovascular: Normal. absent: Chest Pain Gastrointestinal: Abdominal Pain, Nausea. absent: Vomiting Genitourinary Male: Hematuria, Urinary Output Changes Musculoskeletal: Normal Skin: Normal Neurological: Dizziness. absent: Headache Endocrine: Normal Hemo/Lymphatic: Normal Psychiatric: Normal Physical Exam - Physical Exam Narrative Physical Exam (Text): 04/13/18 13:31 General: alert/awake, GCS = 15, oriented x 3, resting in bed, uncomfortable, cooperative, interactive; moderate distress due to pain Head: NC/AT EYE: PERRLA, EOMI, sclera anicteric, no nystagmus, no photophobia; visual field intact b/l Facial: WNL Oral: uvula/tongue are midline, no exudate/lesions, no drooling/stridor, no dysphonia; fair dentitions; mild dry oral mucosa NECK: intact ROM, no midline tenderness, no nuchal rigidity, no meningeal signs ; no step off Chest: CTA b/l, no w/r/r; no tachypenia, no accessory muscle use noted Cardiac: +S1, +S2, no m/r/r, no tachycardia Abdominal: +BS, soft/nd, + diffuse suprapubic tenderness, well nourished/morbid obese patient; no masses/rebound/guarding/rigidity; no taylor's sign, no mcburney's point tenderness : + circumcised male, + gross hematuria noted with blood clots at the meatus; b/l descended testis; no gross tenderness noted on exam Extremities: intact ROM, strength 5/5 grossly intact in all limbs, neurovasc intact b/l; + ambulatory; reflex +2/2; no pitting edema noted b/l BACK: no step off, no midline tenderness, NO crepitus, no gross deformities noted; Intact ROM SKIN: cap refill ~ 1 sec, no ulcerations, no petechiae, no rashes; + pallor NEURO: CNII-XII WNL, no facial asymmetries, no slurr speech, oriented x 3 NIH stroke scale ~ 0 Psych: normal insight, normal affect; follows command with ease Vital Signs Reviewed: Yes Vital Signs Temp Pulse Resp BP Pulse Ox 04/13/18 16:11 98.5 F 57 L 18 120/62 97 04/13/18 15:54 98.5 F 57 L 18 120/65 04/13/18 15:37 98.4 F 58 L 16 120/65 04/13/18 13:35 97.6 F 04/13/18 13:19 60 18 103/56 L 98 Temperature: Afebrile Blood Pressure: Hypotensive Pulse: Regular Respiratory Rate: Normal Appearance: Positive for: Well-Appearing, Uncomfortable Pain Distress: Moderate Mental Status: Positive for: Alert and Oriented X 3 - Systems Exam Head: Present: Atraumatic, Normocephalic Medical Decision Making ED Course and Treatment: 04/13/18 13:25 Impression: gross hematuria i have consider all the differential diagnosis regarding pt's chief medical complaints/clinical findings, including but are not limited to: gross hematuria r/o obstruction, r/o wound defect, r/o infection A/P: gross hematuria - labs - iv - xray vs CT - ua - supportive care - observe/reevaluation pt is resting in bed pt is awaiting lab results/sánchez placement 04/13/18 13:57 Patient had a syncopal event while obtaining blood for testing and Sánchez catheter placement, which was witnessed by nursing staff. Patient appeared pale and unresponsive for approximately 30 seconds. He is currently awake and responsive. is aware. Patient signed consent form for blood transfusion. 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 Recommended emergent IR embolization; and that if [place] does not have the emergent capabilities then he will accept the patient over to [place] for stated procedure. Will accept patient for transfer and pt will likely be admitted to Dr Zack Barnard (hospitalists) patient/ are made aware of my discussions with Dr Barnard, agrees with transfer to [facility] 04/13/18 14:34 Patient will be transferred to [facility]. Transfer process/procedure started. vital signs are improving pt received fluids and blood transfusion is pending 04/13/18 1500 EMS transport at bedside pt successfully transferred out to [facility] Emergency department for further evaluation/treatment/management Re-evaluation Time: 16:01 Reassessment Condition: Improving,but remains with symptoms - Critical Care Critical Care Minutes: 45 minutes Critical Care Time: Excluding Proc Time Narrative Critical Care (Text): 04/13/18 23:06 critical care time: 45min, excluding procedure time, excluding time teaching residents/students/mid-level providers; including initial eval/diagnosis, diagnostic interpretation, re-eval, consultations, final disposition - Lab Interpretations Lab Results: 04/13/18 13:50 04/13/18 13:50 Lab Results 04/13/18 16:00: Urine Color Dark red, Urine Appearance Bloody, Urine pH 7.0, Ur Specific [place] 1.015, Urine Protein >=300 H, Urine Glucose (UA) 100 H, Urine Ketones 15 H, Urine Blood Large H, Urine Nitrate Positive H, Urine Bilirubin Negative, Urine Urobilinogen 4.0 H, Ur Leukocyte Esterase Moderate H, Urine RBC Tntc, Urine WBC Tntc, Urine Bacteria Large 04/13/18 13:50: Troponin I < 0.01, NT-Pro-B Natriuret Pep 247 04/13/18 13:50: Blood Type O POSITIVE, Antibody Screen Negative, Crossmatch See Detail, BBK History Checked Patient has bt 04/13/18 13:50: pO2 49, VBG pH 7.38, VBG pCO2 44.0, VBG HCO3 26.0, VBG Total CO2 27.4, VBG O2 Sat (Calc) 90.0 H, VBG Base Excess 0.5, VBG Potassium 3.2 L, Sodium 140.0, Chloride 108.0 H, Glucose 189 H, Lactate 2.7 H, FiO2 21.0, Venous Blood Potassium 3.2 L 04/13/18 13:50: Sodium 142, Chloride 104, Potassium 3.3 L, Carbon Dioxide 24, Anion Gap 17, BUN 28 H, Creatinine 2.5 H, Est GFR ( Amer) 31, Est GFR ( Non-Af Amer) 26, Random Glucose 176 H, Calcium 10.5, Total Bilirubin 1.8 H, AST 52, ALT 39, Alkaline Phosphatase 158 H, Total Protein 6.8, Albumin 3.6, Globulin 3.2, Albumin/Globulin Ratio 1.1, Lipase 297 04/13/18 13:50: PT 13.3 H, INR 1.16 H, APTT 28.7 04/13/18 13:50: WBC 12.6 H D, RBC 3.48 L, Hgb 10.0 L, Hct 29.1 L, MCV 83.6, MCH 28.7, MCHC 34.4, RDW 15.2 H, Plt Count 144, MPV 10.3, Gran % 79.2 H, Lymph % ( Auto) 11.5 L, [place] % (Auto) 8.7 H, Eos % (Auto) 0.5 L, Baso % (Auto) 0.1, Gran # 9.98 H, Lymph # (Auto) 1.5, [place] # (Auto) 1.1 H, Eos # (Auto) 0.1, Baso # ( Auto) 0.01 I have reviewed the lab results: Yes Interpretation: Abnormal lab values (abnl CREAT; abnl UA) - RAD Interpretation Narrative RAD Interpretations (Text): 04/13/18 Chest, Abdomen, and Pelvis CT without contrast: Creator : DR. Drake, Jan WINKLER Radiation dose: Total exam DLP = 1981.65 mGy-cm. This CT exam was performed using one or more of the following dose reduction techniques: Automated exposure control, adjustment of the mA and/or kV according to patient size, and/or use of iterative reconstruction technique. FINDINGS: CT CHEST WITHOUT CONTRAST: LUNGS: Clear. No nodule, mass or consolidation. MEDIASTINUM: Mild cardiomegaly. Coronary arterial calcification. No evidence of thoracic aortic aneurysm. No dilatation of the main pulmonary artery. No lymphadenopathy. Solitary coarse nodular calcification in the right thyroid lobe. Bilateral gynecomastia. LYMPH NODES: Unremarkable. PLEURA: Unremarkable. No pneumothorax. No pleural fluid. BONES: Unremarkable. OTHER FINDINGS: None. CT ABDOMEN AND PELVIS: Please note that evaluation of the abdomen is somewhat limited due to patient body habitus. The entire right antral lateral abdomen and abdominal wall could not be included this examination. LIVER: Unremarkable. No gross lesion or ductal dilatation. GALLBLADDER AND BILE DUCTS: Cholelithiasis. No mural thickening or pericholecystic fluid. PANCREAS: Unremarkable. No gross lesion or ductal dilatation. SPLEEN: Splenomegaly. The spleen measures 20.2 cm in greatest dimension. No mass. ADRENALS: Unremarkable. No mass. KIDNEYS AND URETERS: Right hydroureteronephrosis. No obstructing calculus identified. Nonobstructing 5 mm right lower pole renal calculus. Questionable hyperdense mass mid to lower right kidney, 2.3 cm diameter. This could be artifact due to hyperdense urine within the collecting system. There is high attenuation of the urine in the collecting system and ureter likely due to hemorrhage. There is trace right perinephric fluid. There is a nonobstructing 6 mm mid left renal calculus. There is no left hydronephrosis. There is 82.2 cm exophytic left lower pole renal cortical cyst. No other left renal mass is identified. VASCULATURE: Unremarkable. No aortic aneurysm. BOWEL: Unremarkable. No obstruction. No gross mural thickening. APPENDIX: Not identified. No secondary findings to suggest acute appendicitis. PERITONEUM: Unremarkable. No free fluid. No free air. LYMPH NODES: Unremarkable. No enlarged lymph nodes. BLADDER: Probable acute blood clot dependently within the urinary bladder. A Sánchez catheter balloon is seen within the bladder lumen. There is no mural thickening appreciated. REPRODUCTIVE: Normal prostate BONES: No acute fracture. OTHER FINDINGS: None. IMPRESSION: Suspect acute hemorrhage from right kidney. Questionable hyperdense right renal mass. Bilateral small nonobstructing renal calculi. Blood clot dependent within the urinary bladder. Recommend multiphasic contrast-enhanced CT examination of the abdomen for evaluation of possible right renal mass. Cholelithiasis. Splenomegaly. Additional minor findings as above. Chest X-ray: Creator : Layton Hagen MD COMPARISON: Portable chest 04/21/2017. FINDINGS: LUNGS: No active pulmonary disease. Diminished inspiratory volume noted. PLEURA: No pneumothorax or pleural fluid seen. CARDIOVASCULAR: Normal. OSSEOUS STRUCTURES: No significant abnormalities. VISUALIZED UPPER ABDOMEN: Normal. OTHER FINDINGS: None. IMPRESSION: No acute infiltrate pleural effusion or pneumothorax appreciable. Cardiomediastinal silhouette is stable and unremarkable. Diminished inspiratory volume. Radiology Orders: 04/13/18 14:11 CHEST ONE VIEW [RAD] Stat 04/13/18 14:25 CHEST,ABDOMEN, PELVIS W/O CONT [CT] Stat Pari Mutuel T[employer] Cashier: Radiologist - EKG Interpretation EKG Interpretation (Text): 04/13/18 23:02 NSR at 60 bpm, normal axis, no ectopy, qs in leads L/v1-2, biphasic T noted to V1-2; no st changes, ABNL EKG; unchanged compare with old ekg 04/2017 Interpreted by ED Physician: Yes Type: 12 lead EKG Comparison: Similar to previous EKG - Medication Orders Current Medication Orders: Discontinued Medications Ceftriaxone Sodium (Rocephin 1 Gram Ivpb) 1 gm in 100 mls @ 200 mls/hr IVPB STAT STA PRN Reason: Protocol Stop: 04/13/18 13:52 Last Admin: 04/13/18 14:12 Dose: 200 mls/hr eMAR Start Stop Document 04/13/18 14:12 EQ (Rec: 04/13/18 14:13 EQ [id number]) Intravenous Solution Start Date 04/13/18 Start Time 14:12 Sodium Chloride (Sodium Chloride 0.9%) 1,000 mls @ 100 mls/hr IV .Q10H NANDINI Last Admin: 04/13/18 14:16 Dose: 100 mls/hr eMAR Start Stop Document 04/13/18 14:16 EQ (Rec: 04/13/18 14:16 EQ [id number]) Intravenous Solution Start Date 04/13/18 Start Time 14:16 Sodium Chloride (Sodium Chloride 0.9%) 1,000 mls @ 999 mls/hr IV .Q1H1M STA Stop: 04/13/18 15:10 Last Admin: 04/13/18 15:34 Dose: 999 mls/hr eMAR Start Stop Document 04/13/18 15:34 EQ (Rec: 04/13/18 15:34 EQ [id number]) Intravenous Solution Start Date 04/13/18 Start Time 15:34 Morphine Sulfate (Morphine) 4 mg IVP STAT STA Stop: 04/13/18 13:36 Last Admin: 04/13/18 15:34 Dose: Not Given Non-Admin Reason: BP Parameters Not Met MAR Pain Assessment Document 04/13/18 15:34 EQ (Rec: 04/13/18 15:34 EQ [id number]) Pain Reassessment Is this a pain reassessment? No Sleep Is patient sleeping during reassessment? No Presence of Pain Presence of Pain Yes Ondansetron HCl (Zofran Inj) 4 mg IVP STAT STA Stop: 04/13/18 13:36 Last Admin: 04/13/18 15:34 Dose: Not Given Non-Admin Reason: Patient Refused IVP Administration Document 04/13/18 15:34 EQ (Rec: 04/13/18 15:34 EQ [id number]) Charges for Administration # of IVP Administrations 1 - Scribe Statement The provider has reviewed the documentation as recorded by the Alfredoibkatya Abreu Provider Scribe Attestation: All medical record entries made by the Scribe were at my direction and personally dictated by me. I have reviewed the chart and agree that the record accurately reflects my personal performance of the history, physical exam, medical decision making, and the department course for this patient. I have also personally directed, reviewed, and agree with the discharge instructions and disposition. Disposition/Present on Arrival - Present on Arrival Any Indicators Present on Arrival: No History of DVT/PE: No History of Uncontrolled Diabetes: No Urinary Catheter: No History of Decub. Ulcer: No History Surgical Site Infection Following: None - Disposition Have Diagnosis and Disposition been Completed?: Yes Diagnosis: Gross hematuria, Acute renal insufficiency, Syncope, Anemia, Hypotension Disposition: Transfer HUMU Disposition Time: 15:00 Patient Plan: Transfer To ([facility]; accepted by Urologists Dr Judy Barnard) Condition: STABLE Discharge Instructions (ExitCare): Syncope (ED) Forms: [employer] (Guyanese)
[2018-04-13] MEDS ORDERED: Sodium Chloride 0.9% 1,000 ML IV SCH (13:30)
[2018-04-13] MEDS ORDERED: Morphine 4 mg/ml ISec IVP STA (13:35)
[2018-04-13 14:05] LABS: VENOUS BLOOD GAS BASE EXCESS 0.5 mmol/L (0.0-2.0); VENOUS BLOOD GAS PO2 49 mm/Hg (30-55); VENOUS BLOOD PH 7.38 (7.32-7.43)
[2018-04-13 14:08] LABS: BASO # 0.01 K/mm3 (0.0-2.0); BASO % 0.1 % (0.0-3.0); EOS # 0.1 (0.0-0.7); EOS % 0.5 % (1.5-5.0); GRAN # 9.98 (1.4-6.5); GRAN % 79.2 % (50.0-68.0); LYMPH # 1.5 (1.2-3.4); LYMPH % 11.5 % (22.0-35.0); MEAN CELL VOLUME 83.6 fl (80.0-105.0); MEAN CORPUSCULAR HEMOGLOBIN 28.7 pg (25.0-35.0); MEAN CORPUSCULAR HGB CONC 34.4 g/dl (31.0-37.0); MEAN PLATELET VOLUME 10.3 fl (7.0-11.0); MONO # 1.1 (0.1-0.6); MONO % 8.7 % (1.0-6.0); RBC 3.48 10^6/uL (3.5-6.1); RED CELL DISTRIBUTION WIDTH 15.2 % (11.5-14.5); WHITE BLOOD COUNT 12.6 10^3/ul (4.5-11.0)
[2018-04-13] MEDS ORDERED: Sodium Chloride 0.9% 1,000 ML IV STA (14:10)
[2018-04-13 14:12] LABS: ALB/GLOB RATIO 1.1 (1.1-1.8); ALBUMIN 3.6 g/dL (3.0-4.8); CALCIUM 10.5 mg/dL (8.4-10.5)
[2018-04-13 14:18] LABS: INR 1.16 (0.93-1.08); PARTIAL THROMBOPLASTIN TIME 28.7 Seconds (25.1-36.5); PROTHROMBIN TIME 13.3 SECONDS (9.4-12.5)
[2018-04-13 15:12] LABS: B-TYPE NATRIURETIC PEPTIDE 247 pg/mL (0-450); TROPONIN I < 0.01 ng/mL
--- NOTE | 2018-04-13 15:51 | CT ---
PROCEDURE: CT Chest, Abdomen and Pelvis without intravenous contrast HISTORY: syncope COMPARISON: None. TECHNIQUE: Radiation dose: Total exam DLP = 1981.65 mGy-cm. This CT exam was performed using one or more of the following dose reduction techniques: Automated exposure control, adjustment of the mA and/or kV according to patient size, and/or use of iterative reconstruction technique. FINDINGS: CT CHEST WITHOUT CONTRAST: LUNGS: Clear. No nodule, mass or consolidation. MEDIASTINUM: Mild cardiomegaly. Coronary arterial calcification. No evidence of thoracic aortic aneurysm. No dilatation of the main pulmonary artery. No lymphadenopathy. Solitary coarse nodular calcification in the right thyroid lobe. Bilateral gynecomastia. LYMPH NODES: Unremarkable. PLEURA: Unremarkable. No pneumothorax. No pleural fluid. BONES: Unremarkable. OTHER FINDINGS: None. CT ABDOMEN AND PELVIS: Please note that evaluation of the abdomen is somewhat limited due to patient body habitus. The entire right antral lateral abdomen and abdominal wall could not be included this examination. LIVER: Unremarkable. No gross lesion or ductal dilatation. GALLBLADDER AND BILE DUCTS: Cholelithiasis. No mural thickening or pericholecystic fluid. PANCREAS: Unremarkable. No gross lesion or ductal dilatation. SPLEEN: Splenomegaly. The spleen measures 20.2 cm in greatest dimension. No mass. ADRENALS: Unremarkable. No mass. KIDNEYS AND URETERS: Right hydroureteronephrosis. No obstructing calculus identified. Nonobstructing 5 mm right lower pole renal calculus. Questionable hyperdense mass mid to lower right kidney, 2.3 cm diameter. This could be artifact due to hyperdense urine within the collecting system. There is high attenuation of the urine in the collecting system and ureter likely due to hemorrhage. There is trace right perinephric fluid. There is a nonobstructing 6 mm mid left renal calculus. There is no left hydronephrosis. There is 82.2 cm exophytic left lower pole renal cortical cyst. No other left renal mass is identified. VASCULATURE: Unremarkable. No aortic aneurysm. BOWEL: Unremarkable. No obstruction. No gross mural thickening. APPENDIX: Not identified. No secondary findings to suggest acute appendicitis. PERITONEUM: Unremarkable. No free fluid. No free air. LYMPH NODES: Unremarkable. No enlarged lymph nodes. BLADDER: Probable acute blood clot dependently within the urinary bladder. A Harrington catheter balloon is seen within the bladder lumen. There is no mural thickening appreciated. REPRODUCTIVE: Normal prostate BONES: No acute fracture. OTHER FINDINGS: None. IMPRESSION: Suspect acute hemorrhage from right kidney. Questionable hyperdense right renal mass. Bilateral small nonobstructing renal calculi. Blood clot dependent within the urinary bladder. Recommend multiphasic contrast-enhanced CT examination of the abdomen for evaluation of possible right renal mass. Cholelithiasis. Splenomegaly. Additional minor findings as above.
[2018-04-13 16:06] VITALS: PULSE 57; RESP 18; TEMP 98.5
[2018-04-13 16:11] LABS: URINE BILIRUBIN NEGATIVE (NEGATIVE); URINE BLOOD LARGE (NEGATIVE); URINE GLUCOSE (UA) 100 mg/dL (NEGATIVE); URINE LEUKOCYTE ESTERASE MODERATE Leu/uL (NEGATIVE); URINE PROTEIN >=300 mg/dL (<30 mg/dL)
[2018-04-13 16:12] LABS: URINE APPEARANCE BLOODY (CLEAR); URINE COLOR DARK RED (YELLOW)
[2018-04-13 16:19] LABS: URINE RBC TNTC /hpf (0-2); URINE WBC TNTC /hpf (0-6)
[2018-04-13 16:20] LABS: URINE BACTERIA LARGE (NEG)
--- NOTE | 2018-04-13 16:27 | RAD ---
PROCEDURE: CHEST RADIOGRAPH, 1 VIEW HISTORY: syncope, weakness, hematuria COMPARISON: Portable chest 04/21/2017. FINDINGS: LUNGS: No active pulmonary disease. Diminished inspiratory volume noted. PLEURA: No pneumothorax or pleural fluid seen. CARDIOVASCULAR: Normal. OSSEOUS STRUCTURES: No significant abnormalities. VISUALIZED UPPER ABDOMEN: Normal. OTHER FINDINGS: None. IMPRESSION: No acute infiltrate pleural effusion or pneumothorax appreciable. Cardiomediastinal silhouette is stable and unremarkable. Diminished inspiratory volume.
[2018-04-13 17:05] VITALS: BP 120/62; O2SAT 97
--- NOTE | 2018-04-13 20:31 | CARD ---
APPROVED REPORT EKG Measurement Heart [id number] <Conclusion> Sinus bradycardia Voltage criteria for left ventricular hypertrophy Cannot rule out Septal infarct, age undetermined Abnormal ECG
== END 2018-04-13 17:01 | disposition short-term general hospital (02) ==
LOC: ED 13:02
DX: D64.9 Anemia, unspecified (principal); N28.9 Disorder of kidney and ureter, unspecified; R55 Syncope and collapse; I95.9 Hypotension, unspecified; R31.0 Gross hematuria
CPT/HCPCS: 36430; 71045; 71250; 74176; 80053; 81001; 82803; 83690; 83880; 84484; 85025; 85610; 85730; 86850; 86900; 86920; 87040; 87086; 93005; 96374; 99285; J0696; J7030; P9016